=== PATIENT | female | born 1955 | race American Indian/Alaskan Native ===

== ENCOUNTER 2019-09-15 01:57 | Emergency (ER) | payer MEDICARE, OTHER ==
[2019-09-15] MEDS ORDERED: levETIRAcetam 1000 MG/NS 0.75% 1,000 MG/100 ML BAG IV ONE ×3 (02:01→04:35)
--- NOTE | 2019-09-15 02:07 | Emergency Department Report ---
ED Neuro Deficit HPI - General Stated Complaint: POSS SRTOKE Time Seen by Provider: 09/15/19 01:57 Source: EMS Mode of arrival: Stretcher Limitations: Altered Mental Status - History of Present Illness Initial Comments: Patient is a 64-year-old female that presents emergency room with complaints of weakness, new onset seizure. Patient had a witnessed seizure by EMS and was giv en Versed in route. Report received from EMS. Last known well time 6 PM on 09/14/2019 Report received from the family. Family states that at 6 PM the patient became weak on her left side and the weakness worsened throughout the day. Family states that 1 AM the patient then had some difficulty breathing and went into a seizure and they called EMS. -: Sudden Location: left face, left arm, left leg Presenting Symptoms: Present: Weak/Paralyzed One Side History of same: Yes Place: home Severity: severe Quality: weak Improves With: none Worsens With: none Context: sudden onset Associated Symptoms: confusion, seizures - Related Data Allergies/Adverse Reactions: Allergies Allergy/AdvReac Type Severity Reaction Status Date / Time No Known Allergies Allergy Unverified 09/15/19 06:27 ED Review of Systems ROS: Stated complaint: POSS SRTOKE Other details as noted in HPI Comment: Unobtainable due to pts medical conditions ED Past Medical Hx - Past Medical History Previous Medical History?: Yes Hx Hypertension: Yes Hx CVA: Yes - Surgical History Past Surgical History?: No - Family History Family history: no significant - Social History Smoking Status: Current Every Day Smoker Substance Use Type: None ED Neuro Physical Exam - General Limitations: Altered Mental Status, Physical Limitation General appearance: in no apparent distress, obtunded Suspected Stroke: Yes - Head Head exam: Present: atraumatic, normocephalic - Eye Eye exam: Present: normal appearance, PERRL Pupils: Present: normal accommodation - ENT ENT exam: Present: mucous membranes moist - Neck Neck exam: Present: normal inspection - Respiratory Respiratory exam: Present: normal lung sounds bilaterally. Absent: respiratory distress, wheezes, rales - Cardiovascular Cardiovascular Exam: Present: regular rate, normal rhythm. Absent: systolic murmur, diastolic murmur, rubs, gallop - GI/Abdominal GI/Abdominal exam: Present: soft, normal bowel sounds - Extremities Exam Extremities exam: Present: normal inspection - Back Exam Back exam: Present: normal inspection - Neurological Exam Neurological exam: Present: altered - NIHSS Assessment Interval: Baseline 1a. Level of Consciousness: coma/unresponsive 1b. LOC Questions: aphasic 1c. LOC Commands: performs no tasks correctly 2. Best Gaze: normal 3. Visual: no visual loss 4. Facial Palsy: minor paralysis 5b. Motor Arm Right: no movement 5a. Motor Arm Left: no movement 6a. Motor Leg Left: no movement 6b. Motor Leg Right: no movement 7. Limb Ataxia: absent 8. Sensory: no response/quadraplegic 9. Best Language: coma/unresponsive 10. Dysarthria: mute/anarrthric 11. Extinction/Inattention: no abnormality Total Score: 31 Stroke Severity: Severe Stroke - Psychiatric Psychiatric exam: Present: normal affect, normal mood - Skin Skin exam: Present: warm, dry, intact, normal color. Absent: rash ED Course Vital Signs 09/15/19 09/15/19 09/15/19 02:00 02:14 02:15 Temperature 97.8 F Pulse Rate 122 H 121 H Respiratory 33 H 29 H Rate Blood Pressure 149/54 O2 Sat by Pulse 97 97 Oximetry 09/15/19 09/15/19 09/15/19 02:30 02:44 03:15 Temperature Pulse Rate 120 H 120 H 117 H Respiratory 21 20 Rate Blood Pressure 138/60 138/60 146/70 O2 Sat by Pulse 100 100 100 Oximetry 09/15/19 09/15/19 09/15/19 03:30 03:36 03:45 Temperature Pulse Rate 133 H 125 H Respiratory 20 20 21 Rate Blood Pressure 137/59 137/59 O2 Sat by Pulse 100 100 100 Oximetry 09/15/19 09/15/19 09/15/19 04:00 04:15 04:18 Temperature Pulse Rate 105 H 100 H 97 H Respiratory 21 20 Rate Blood Pressure 88/44 87/45 87/45 O2 Sat by Pulse 99 100 100 Oximetry 09/15/19 09/15/19 09/15/19 04:30 04:45 05:00 Temperature Pulse Rate 95 H 92 H 91 H Respiratory 21 22 22 Rate Blood Pressure 95/48 97/49 102/52 O2 Sat by Pulse 100 100 100 Oximetry 09/15/19 09/15/19 09/15/19 05:15 05:31 05:45 Temperature Pulse Rate 110 H 117 H 116 H Respiratory 24 21 18 Rate Blood Pressure 102/52 112/61 114/64 O2 Sat by Pulse 100 100 100 Oximetry 09/15/19 09/15/19 06:01 06:15 Temperature Pulse Rate 117 H 114 H Respiratory 23 19 Rate Blood Pressure 104/55 104/55 O2 Sat by Pulse 100 100 Oximetry - Reevaluation(s) Reevaluation #1: Evaluation done. Patient sent to CT and code stroke initiated. 09/15/19 01:57 Reevaluation #2: Patient returned from CT. Patient is minimally responsive. Patient's GCS is low. Patient will be intubated to protect the airway. Neurologist on video monitor with patient's family. See procedure note for intubation. RSI used. Personal protective equipment used in accordance with hospital policy and CDC recommendations. 09/15/19 02:05 Reevaluation #3: Patient on vent. Patient will have a CTA done. Patient is not on Ativan drip. 09/15/19 03:00 Reevaluation #4: Patient in the room. Patient vital signs are being monitored and stable. No seizure activity noted. Patient on Ativan drip. 09/15/19 03:25 Reevaluation #5: CTAs are done. Patient has an occlusion. [place] [facility] will be paged. Patient also found to be hypotensive. Patient is a 500 mL bolus. Patient also ET tube most of adjusted down during transport to CT her back because the CT of the neck shows that the ET tube is in the right main bronchus. Respiratory therapist made aware and will adjust the tube. 09/15/19 04:06 Patient's blood pressures improved. Patient is currently on a pressor. Patient had a central line placed. Patient had to be placed on the Ativan drip because the patient started to fight the vent. Patient given bicarb. 09/15/19 05:47 Patient blood pressure is improving. Patient will be given more fluids. Patient will be prepared for transport. Patient will transport via EMS. 09/15/19 06:20 - Consultations Consultation #1: Neuro consulted. neuro saw pt and spoke with family. 09/15/19 01:57 Consultation #2: [facility] neuro[facility] paged 09/15/19 04:06 I discussed case with Dr. Worley, neurosurgery at [facility]. Dr. Worley does not recommend any further endovascular procedure but will discuss the case with the neuro ICU and the neurology service for transfer. Dr. Worley wants the patient to receive 2 more grams of Keppra and patient placed on a pressor for low blood pressure. 09/15/19 04:30 Consultation #3: I discussed case with hospitalist. Hospital states we do not have neurology here and recommends transfer. 09/15/19 04:45 Consult #4: Dr. Ferrara at [facility], neuro aviation boatswain's mate has accepted the patient after the patient has a central line and is placed on a pressor and a pH is 7.3. 09/15/19 04:56 I discussed the case again with Dr. Ferrara, the neuro aviation boatswain's mate. Dr. Ferrara has accepted the patient to be transferred to [facility] at this point. 09/15/19 06:19 - Central Line Placement Right Femoral Consent Obtained: emergent situation Time Out Performed: Yes Patient Placed on Monitor/Pulse Ox: Yes MD Prep: mask, gown, gloves Central Line Prep: Chlorhexidine scrub, sterile drapes applied Local Anesthesia Used: Lidocaine 1% Ultrasound Used for Placement: Yes Central Line Lumen Inserted: triple Bloods Obtained for Lab: Yes Central Line Position: good blood return, all ports aspirated, flus, sutured in place with 2-0 Dressing Applied: Tegaderm Patient Tolerated Procedure: well, no complications Complications: none - Intubation Time Out Performed: Yes Sedative: Etomidate Paralytic: Rocuronium Laryngoscope: fiberoptic video scope Size: 4 Assist Device Used: fiberoptic device ET Tube Size: 7.5 Tube Secured Depth (cm): 23 Tube Secured Location: teeth Tube Placement Confirmation: visualized tube passing t, equal breath sounds bilat, no breath sounds over epi, confirmation by capnometr Patient Tolerated Procedure: well, no complications Intubation Complications: none - Lab Data Result diagrams: 09/15/19 02:18 09/15/19 02:18 Lab Results 09/15/19 09/15/19 09/15/19 Range/Units 02:18 02:18 02:18 WBC 26.9 H (4.5-11.0) K/mm3 RBC 2.17 L (3.65-5.03) M/mm3 Hgb 5.4 L* (10.1-14.3) gm/dl Hct 20.5 L (30.3-42.9) % MCV 94 (79-97) fl MCH 25 L (28-32) pg MCHC 26 L (30-34) % RDW 20.6 H (13.2-15.2) % Plt Count 368 (140-440) K/mm3 Lymph # [employer] Developer Add Manual Diff Complete Total Counted 99 Seg Neuts % (Manual) 44.4 (40.0-70.0) % Band Neutrophils % 0 % Lymphocytes % (Manual) 43.4 H (13.4-35.0) % Reactive Lymphs % (Man) 0 % Monocytes % (Manual) 8.1 H (0.0-7.3) % Eosinophils % (Manual) 2.0 (0.0-4.3) % Basophils % (Manual) 0 (0.0-1.8) % Metamyelocytes % 2.0 % Myelocytes % 0 % Promyelocytes % 0 % Blast Cells % 0 % Nucleated RBC % Not Reportable Seg Neutrophils # Man 11.9 H (1.8-7.7) K/mm3 Band Neutrophils # 0.0 K/mm3 Lymphocytes # (Manual) 11.7 H (1.2-5.4) K/mm3 Abs React Lymphs (Man) 0.0 K/mm3 Monocytes # (Manual) 2.2 H (0.0-0.8) K/mm3 Eosinophils # (Manual) 0.5 H (0.0-0.4) K/mm3 Basophils # (Manual) 0.0 (0.0-0.1) K/mm3 Metamyelocytes # 0.5 K/mm3 Myelocytes # 0.0 K/mm3 Promyelocytes # 0.0 K/mm3 Blast Cells # 0.0 K/mm3 WBC Morphology Not Reportable Hypersegmented Neuts Not Reportable Hyposegmented Neuts Not Reportable Hypogranular Neuts Not Reportable Smudge Cells Not Reportable Toxic Granulation Not Reportable Toxic Vacuolation Not Reportable Dohle Bodies Not Reportable Pelger-Huet Anomaly Not Reportable Alex Rods Not Reportable Platelet Estimate Consistent w auto Clumped Platelets Not Reportable Plt Clumps, EDTA Not Reportable Large Platelets Not Reportable Giant Platelets Not Reportable Platelet Satelliting Not Reportable Plt Morphology Comment Not Reportable RBC Morphology Not Reportable Dimorphic RBCs Not Reportable Polychromasia Few Hypochromasia 3+ Poikilocytosis Not Reportable Anisocytosis 2+ Microcytosis Not Reportable Macrocytosis Few Spherocytes Rare Pappenheimer Bodies Not Reportable Sickle Cells Not Reportable Target Cells Not Reportable Tear Drop Cells Not Reportable Ovalocytes Not Reportable Helmet Cells Not Reportable C[place] Bodies Not Reportable [place] Rings Not Reportable Chacho Cells Few Bite Cells Not Reportable Crenated Cell Not Reportable Elliptocytes Not Reportable Acanthocytes (Spur) Not Reportable Rouleaux Not Reportable Hemoglobin C Crystals Not Reportable Schistocytes Not Reportable Malaria parasites Not Reportable Lex Bodies Not Reportable Hem Pathologist Commnt No PT 17.6 H (12.2-14.9) Sec. INR 1.42 H (0.87-1.13) APTT 29.4 (24.2-36.6) Sec. Thrombin Time 17.4 (15.1-19.6) Sec. ABG pH (7.350-7.450) pH Units ABG pCO2 mm Hg ABG pO2 (80.0-90.0) mm Hg ABG HCO3 (20.0-26.0) mmol/L ABG O2 Saturation (95.0-99.0) % ABG O2 Content (0.0-44) ABG Base Excess (-2.0-3.0) mmol/L ABG Hemoglobin (12.0-16.0) gm/dl ABG Carboxyhemoglobin (0.0-5.0) % ABG Methemoglobin (0.0-1.5) % Oxyhemoglobin (95.0-99.0) % FiO2 % Sodium (137-145) mmol/L Potassium (3.6-5.0) mmol/L Chloride (98-107) mmol/L Carbon Dioxide (22-30) mmol/L Anion Gap mmol/L BUN (7-17) mg/dL Creatinine (0.7-1.2) mg/dL Estimated GFR ml/min BUN/Creatinine Ratio % Glucose (65-100) mg/dL Calcium (8.4-10.2) mg/dL Total Bilirubin (0.1-1.2) mg/dL AST (5-40) units/L ALT (7-56) units/L Alkaline Phosphatase (35-129) units/L Total Creatine Kinase 135 (30-135) units/L CK-MB (CK-2) 2.2 (0.0-4.0) ng/mL CK-MB (CK-2) Rel Index 1.6 (0-4) Troponin T 0.014 (0.00-0.029) ng/mL Total Protein (6.3-8.2) g/dL Albumin (3.9-5) g/dL Albumin/Globulin Ratio % Blood Type Antibody Screen Crossmatch 09/15/19 09/15/19 09/15/19 Range/Units 02:18 03:04 04:00 WBC (4.5-11.0) K/mm3 RBC (3.65-5.03) M/mm3 Hgb (10.1-14.3) gm/dl Hct (30.3-42.9) % MCV (79-97) fl MCH (28-32) pg MCHC (30-34) % RDW (13.2-15.2) % Plt Count (140-440) K/mm3 Lymph # Add Manual Diff Total Counted Seg Neuts % (Manual) (40.0-70.0) % Band Neutrophils % % Lymphocytes % (Manual) (13.4-35.0) % Reactive Lymphs % (Man) % Monocytes % (Manual) (0.0-7.3) % Eosinophils % (Manual) (0.0-4.3) % Basophils % (Manual) (0.0-1.8) % Metamyelocytes % % Myelocytes % % Promyelocytes % % Blast Cells % % Nucleated RBC % Seg Neutrophils # Man (1.8-7.7) K/mm3 Band Neutrophils # K/mm3 Lymphocytes # (Manual) (1.2-5.4) K/mm3 Abs React Lymphs (Man) K/mm3 Monocytes # (Manual) (0.0-0.8) K/mm3 Eosinophils # (Manual) (0.0-0.4) K/mm3 Basophils # (Manual) (0.0-0.1) K/mm3 Metamyelocytes # K/mm3 Myelocytes # K/mm3 Promyelocytes # K/mm3 Blast Cells # K/mm3 WBC Morphology Hypersegmented Neuts Hyposegmented Neuts Hypogranular Neuts Smudge Cells Toxic Granulation Toxic Vacuolation Dohle Bodies Pelger-Huet Anomaly Alex Rods Platelet Estimate Clumped Platelets Plt Clumps, EDTA Large Platelets Giant Platelets Platelet Satelliting Plt Morphology Comment RBC Morphology Dimorphic RBCs Polychromasia Hypochromasia Poikilocytosis Anisocytosis Microcytosis Macrocytosis Spherocytes Pappenheimer Bodies Sickle Cells Target Cells Tear Drop Cells Ovalocytes Helmet Cells Cates-[place] Bodies Sturgis Rings Chacho Cells Bite Cells Crenated Cell Elliptocytes Acanthocytes (Spur) Rouleaux Hemoglobin C Crystals Schistocytes Malaria parasites Lex Bodies Hem Pathologist Commnt PT (12.2-14.9) Sec. INR (0.87-1.13) APTT (24.2-36.6) Sec. Thrombin Time (15.1-19.6) Sec. ABG pH 7.165 L* (7.350-7.450) pH Units ABG pCO2 38.8 mm Hg ABG pO2 126.0 H (80.0-90.0) mm Hg ABG HCO3 13.7 L (20.0-26.0) mmol/L ABG O2 Saturation 97.9 (95.0-99.0) % ABG O2 Content 8.5 (0.0-44) ABG Base Excess -13.7 L (-2.0-3.0) mmol/L ABG Hemoglobin 6.1 L (12.0-16.0) gm/dl ABG Carboxyhemoglobin 1.9 (0.0-5.0) % ABG Methemoglobin 0.6 (0.0-1.5) % Oxyhemoglobin 95.4 (95.0-99.0) % FiO2 80 % Sodium 137 (137-145) mmol/L Potassium 4.8 (3.6-5.0) mmol/L Chloride 100.0 (98-107) mmol/L Carbon Dioxide 3 L* (22-30) mmol/L Anion Gap 39 mmol/L BUN 29 H (7-17) mg/dL Creatinine 2.3 H (0.7-1.2) mg/dL Estimated GFR 26 ml/min BUN/Creatinine Ratio 13 % Glucose 377 H (65-100) mg/dL Calcium 9.2 (8.4-10.2) mg/dL Total Bilirubin < 0.20 (0.1-1.2) mg/dL AST 33 (5-40) units/L ALT 23 (7-56) units/L Alkaline Phosphatase 87 (35-129) units/L Total Creatine Kinase (30-135) units/L CK-MB (CK-2) (0.0-4.0) ng/mL CK-MB (CK-2) Rel Index (0-4) Troponin T (0.00-0.029) ng/mL Total Protein 6.6 (6.3-8.2) g/dL Albumin 3.7 L (3.9-5) g/dL Albumin/Globulin Ratio 1.3 % Blood Type O POSITIVE Antibody Screen Negative Crossmatch See Detail 09/15/19 Range/Units 06:05 WBC (4.5-11.0) K/mm3 RBC (3.65-5.03) M/mm3 Hgb (10.1-14.3) gm/dl Hct (30.3-42.9) % MCV (79-97) fl MCH (28-32) pg MCHC (30-34) % RDW (13.2-15.2) % Plt Count (140-440) K/mm3 Lymph # Add Manual Diff Total Counted Seg Neuts % (Manual) (40.0-70.0) % Band Neutrophils % % Lymphocytes % (Manual) (13.4-35.0) % Reactive Lymphs % (Man) % Monocytes % (Manual) (0.0-7.3) % Eosinophils % (Manual) (0.0-4.3) % Basophils % (Manual) (0.0-1.8) % Metamyelocytes % % Myelocytes % % Promyelocytes % % Blast Cells % % Nucleated RBC % Seg Neutrophils # Man (1.8-7.7) K/mm3 Band Neutrophils # K/mm3 Lymphocytes # (Manual) (1.2-5.4) K/mm3 Abs React Lymphs (Man) K/mm3 Monocytes # (Manual) (0.0-0.8) K/mm3 Eosinophils # (Manual) (0.0-0.4) K/mm3 Basophils # (Manual) (0.0-0.1) K/mm3 Metamyelocytes # K/mm3 Myelocytes # K/mm3 Promyelocytes # K/mm3 Blast Cells # K/mm3 WBC Morphology Hypersegmented Neuts Hyposegmented Neuts Hypogranular Neuts Smudge Cells Toxic Granulation Toxic Vacuolation Dohle Bodies Pelger-Huet Anomaly Alex Rods Platelet Estimate Clumped Platelets Plt Clumps, EDTA Large Platelets Giant Platelets Platelet Satelliting Plt Morphology Comment RBC Morphology Dimorphic RBCs Polychromasia Hypochromasia Poikilocytosis Anisocytosis Microcytosis Macrocytosis Spherocytes Pappenheimer Bodies Sickle Cells Target Cells Tear Drop Cells Ovalocytes Helmet Cells Cates-[place] Bodies Sturgis Rings Chacho Cells Bite Cells Crenated Cell Elliptocytes Acanthocytes (Spur) Rouleaux Hemoglobin C Crystals Schistocytes Malaria parasites Lex Bodies Hem Pathologist Commnt PT (12.2-14.9) Sec. INR (0.87-1.13) APTT (24.2-36.6) Sec. Thrombin Time (15.1-19.6) Sec. ABG pH 7.424 (7.350-7.450) pH Units ABG pCO2 36.4 mm Hg ABG pO2 174.3 H (80.0-90.0) mm Hg ABG HCO3 23.3 (20.0-26.0) mmol/L ABG O2 Saturation 99.1 H (95.0-99.0) % ABG O2 Content 7.5 (0.0-44) ABG Base Excess -1.0 (-2.0-3.0) mmol/L ABG Hemoglobin 5.1 L (12.0-16.0) gm/dl ABG Carboxyhemoglobin 1.6 (0.0-5.0) % ABG Methemoglobin 0.5 (0.0-1.5) % Oxyhemoglobin 97.0 (95.0-99.0) % FiO2 45 % Sodium (137-145) mmol/L Potassium (3.6-5.0) mmol/L Chloride (98-107) mmol/L Carbon Dioxide (22-30) mmol/L Anion Gap mmol/L BUN (7-17) mg/dL Creatinine (0.7-1.2) mg/dL Estimated GFR ml/min BUN/Creatinine Ratio % Glucose (65-100) mg/dL Calcium (8.4-10.2) mg/dL Total Bilirubin (0.1-1.2) mg/dL AST (5-40) units/L ALT (7-56) units/L Alkaline Phosphatase (35-129) units/L Total Creatine Kinase (30-135) units/L CK-MB (CK-2) (0.0-4.0) ng/mL CK-MB (CK-2) Rel Index (0-4) Troponin T (0.00-0.029) ng/mL Total Protein (6.3-8.2) g/dL Albumin (3.9-5) g/dL Albumin/Globulin Ratio % Blood Type Antibody Screen Crossmatch - EKG Data -: EKG Interpreted by Me EKG shows normal: sinus rhythm, axis, intervals, QRS complexes, ST-T waves Rate: tachycardia - Radiology Data Radiology results: report reviewed interpreted by me: CHEST 1 VIEW INDICATION / CLINICAL INFORMATION: weakness. COMPARISON: None available. FINDINGS: SUPPORT DEVICES: ET tube is present with the tip approximately 2.3 cm above the lalo. NG tube is also present. The tip is not visualized but is at least within the midportion of the stomach. HEART / MEDIASTINUM: No significant abnormality. LUNGS / PLEURA: Borderline interstitial pulmonary edema. There is questionable retrocardiac parenchymal disease in the left lung base. This is nonspecific and could repr esent pneumonia or atelectasis. Probable very small left pleural effusion. The lungs are otherwise clear. No pneumothorax. ADDITIONAL FINDINGS: No significant additional findings. IMPRESSION: 1. Left lower lobe retrocardiac parenchymal disease. It is unclear on this single image whether this is atelectasis or pneumonia. 2. Borderline interstitial pulmonary edema. CT head/brain wo con INDICATION / CLINICAL INFORMATION: MAIN: Poss bleed CODE STROKE [phone]. TECHNIQUE: Axial CT imaging of brain was obtained without contrast. Coronal and sagittal reformatted imaging obtained and reviewed. All CT scans at this location are performed using CT dose reduction for ALARA by means of automated exposure control. COMPARISON: None available. FINDINGS: No intracranial hemorrhage, mass, or midline shift is noted. There are areas of encephalomalacia throughout the right frontal lobe consistent with old ischemia. Small lacune is present in the caudate head on the right. No extra-axial fluid collection or suggestion of acute CVA at this time. Ventricular system and basilar cisterns are grossly unremarkable. Mild cerebral and cerebellar atrophy noted. Mild microvascular angiopathic change noted. Visualized paranasal sinuses and mastoid air cells are well aerated and clear. No calvarial abnormality. IMPRESSION: 1. Chronic findings within the right frontal lobe. No definite acute intracranial abnormality. CHEST 1 VIEW INDICATION / CLINICAL INFORMATION: weakness. COMPARISON: None available. FINDINGS: SUPPORT DEVICES: ET tube is present with the tip approximately 2.3 cm above the lalo. NG tube is also present. The tip is not visualized but is at least within the midportion of the stomach. HEART / MEDIASTINUM: No significant abnormality. LUNGS / PLEURA: Borderline interstitial pulmonary edema. There is questionable retrocardiac parenchymal disease in the left lung base. This is nonspecific and could represent pneumonia or atelectasis. Probable very small left pleural effusion. The lungs are otherwise clear. No pneumothorax. ADDITIONAL FINDINGS: No significant additional findings. IMPRESSION: 1. Left lower lobe retrocardiac parenchymal disease. It is unclear on this single image whether this is atelectasis or pneumonia. 2. Borderline interstitial pulmonary edema. CT angio neck INDICATION / CLINICAL INFORMATION: 64 years Female; weakness. TECHNIQUE: Thin cut axial images obtained through the head during IV bolus contrast administration. Sagittal, coronal, and 3 plane MIP reconstructions performed by the technologist. NASCET type criteria used evaluate stenoses. All CT scans at this location are performed using CT dose reduction for ALARA by means of automated exposure control. COMPARISON: None available. FINDINGS: ARCH: Bovine arch configuration noted. CAROTID ARTERIES: The common carotid arteries are patent bilaterally. The left internal carotid artery is widely patent. There is occlusion of the right internal carotid artery at its origin. Only minimal flow is seen distally in the communicating portion of the right internal carotid artery, presumably retrograde. VERTEBRAL ARTERIES: Codominant vertebral system seen. No significant stenosis appreciated. ADDITIONAL FINDINGS: Patient is intubated. NG tube noted. Secretions are layering dependently in the nasopharynx. Mild degenerative changes seen in the cervical spine with most marked findings at C4-5 and C5-6. Punctate calcifications seen in the right parotid gland-would question chronic sialoadenitis. Minimal findings to lesser degree seen on the left. Endotracheal tube extends in the patient's right main bronchus and most likely could be pulled back 3 to 4 cm. IMPRESSION: 1. Right ICA occlusion noted. 2. 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 3. Endotracheal tube extends into the patient's right main bronchus. CT angio head INDICATION / CLINICAL INFORMATION: 64 years Female; MAIN: weakness CODE STROKE CTA HEAD AND NECK, 100CC [id number]. TECHNIQUE: Thin cut axial images obtained through the head during IV bolus contrast administration. Sagittal, coronal, and 3 plane MIP reconstructions performed by the gordy chnologist. NASCET type criteria used evaluate stenoses. Automated exposure control utilized for r adiation reduction purposes. COMPARISON: None available. FINDINGS: INTERNAL CAROTID ARTERIES: Right internal carotid artery appears to be occluded with only scant flow seen in the communicating portion-most likely retrograde. The left internal carotid artery is widely patent. VERTEBROBASILAR SYSTEM: No significant narrowing appreciated. DISTAL BRANCHES: Distal branches of the anterior and posterior cerebral arteries are fairly symmetric in appearance and number. Because of the reduced/absence of flow in the right internal carotid artery, the distal MCA branches on the left have a more robust appearance than the right. The A1 segment on the right is re latively hypoplastic when compared with the left. The right MCA territory is most likely fed via the left ICA across the [place]. ANEURYSM: None identified. ADDITIONAL FINDINGS: Secretions are layering in the nasopharynx. The patient is intubated. IMPRESSION: 1. Absence of flow seen in the right internal carotid artery, as described above. 2. Reduced flow in the right MCA territory suspected, as described above. In patients with multiple chronic infarcts, diffusion imaging by MRI would most likely yield the best information in terms of acute ischemia. - Medical Decision Making Patient is a 64-year-old female that presents emergency room with altered mental status, left-sided weakness, status epilepticus. Patient had a code stroke initiated immediately upon arrival and neurology consulted. Patient's had a head CT which was negative. Patient then had a CTA of the head ordered. Prior to CTA the patient was intubated due to decreased level of consciousness and airway protection. Patient's labs were significant for severe anemia, respiratory acidosis, low bicarb, renal failure. Patient had a type and screen done and was given blood in the ER. Patient placed on a pressor per the neurosurgery at [facility]'s recommendation. Patient was also given an extra 2 g of Keppra per the neurosurgery recommendation. The neurosurgery at [place] stated there is no endovascular intervention for the patient at this time. I then discussed the case with the neuro aviation boatswain's mate at [place] and he has accepted the patient. Neuro aviation boatswain's mate at [place], Dr. Ferrara recommended a central line be placed and patient have adequate fluid resuscitation along with starting blood. Patient had a central line placed in the right femoral vein. Prior to the central line in place and the patient began to wake up and the patient was placed on an Ativan drip. Patient's x-ray done. Patient found to have a pneumonia patient was given antibiotics in the ER. Patient had a CTA of the head and neck done in the ER. The report was given to the neuro aviation boatswain's mate and the neurosurgeon at [place]. While the patient was transferring to or from [place] the ET tube had moved and it was repositioned. Patient had bilateral breath sounds. Patient was given 3 Amps of bicarb for her severe acidosis and low bicarb. Patient's pH improved. I then discussed the case again with Dr. Ferrara and a Dr. Ferrara excepted the patient to be transferred to [place]. Patient moved to the neuro ICU at [place]. Family updated with plan of care. Patient's family agree with entire plan of care. - Differential Diagnosis Stroke, status epilepticus, respiratory failure, pneumonia, ICH - Core Measures AMI Core Measures Followed: Yes Critical Care Time: Yes Critical care time in (mins) excluding proc time.: 80 Critical care attestation.: If time is entered above; I have spent that time in minutes in the direct care of this critically ill patient, excluding procedure time. Critical Care Time: 80 minutes ED Disposition Clinical Impression: New onset seizure, Left-sided weakness, Status epilepticus, Metabolic acidosis Respiratory failure Qualifiers: Chronicity: acute Respiratory failure complication: unspecified whether with hypoxia or hypercapnia Qualified Code(s): J96.00 - Acute respiratory failure, unspecified whether with hypoxia or hypercapnia Altered mental state Qualifiers: Altered mental status type: unspecified Qualified Code(s): R41.82 - Altered mental status, unspecified Anemia Qualifiers: Anemia type: unspecified type Qualified Code(s): D64.9 - Anemia, unspecified Renal failure Qualifiers: Renal failure chronicity: acute Acute renal failure type: unspecified Qualified Code(s): N17.9 - Acute kidney failure, unspecified CVA (cerebral vascular accident) Qualifiers: CVA mechanism: unspecified Qualified Code(s): I63.9 - Cerebral infarction, unspecified Pneumonia Qualifiers: Pneumonia type: due to unspecified organism Laterality: unspecified laterality Lung location: unspecified part of lung Qualified Code(s): J18.9 - Pneumonia, unspecified organism Hypotension Qualifiers: Hypotension type: unspecified hypotension type Qualified Code(s): I95.9 - Hypotension, unspecified Disposition: DC/TX-70 ANOTHER TYPE HLTHCARE Is pt being admited?: No Does the pt Need Aspirin: No Condition: Critical Time of Disposition: 06:19
[2019-09-15] MEDS ORDERED: LORazepam 2 MG/ML VIAL IV PRN (02:23)
[2019-09-15] MEDS ORDERED: LIP THERAPY VASELINE TP PRN (02:23)
[2019-09-15] MEDS ORDERED: MINERAL OIL/PETROLATUM, WHITE OPHTH OINT 3.5 GM OU PRN (02:23)
[2019-09-15] MEDS ORDERED: ROCURONIUM 50 MG/5 ML INJ IV ONE ×2 (02:24→14:13)
[2019-09-15] MEDS ORDERED: ETOMIDATE 20 MG/10 ML INJ IV ONE ×2 (02:24→14:13)
[2019-09-15 02:26] LABS: Mean Corpuscular HGB Conc 26 % (30-34); Mean Corpuscular Volume 94 fl (79-97); Platelet Count 368 K/mm3 (140-440); Red Blood Count 2.17 M/mm3 (3.65-5.03)
--- NOTE | 2019-09-15 02:40 | Cat Scan Report ---
CT head/brain wo con INDICATION / CLINICAL INFORMATION: MAIN: Poss bleed CODE STROKE [phone]. TECHNIQUE: Axial CT imaging of brain was obtained without contrast. Coronal and sagittal reformatted imaging obt ained and reviewed. All CT scans at this location are performed using CT dose reduction for ALARA by means of automated exposure control. COMPARISON: None available. FINDINGS: No intracranial hemorrhage, mass, or midline shift is noted. There are areas of encephalomalacia thro ughout the right frontal lobe consistent with old ischemia. Small lacune is present in the caudate he ad on the right. No extra-axial fluid collection or suggestion of acute CVA at this time. Ventricular system and basilar cisterns are grossly unremarkable. Mild cerebral and cerebellar atrophy noted. Mi ld microvascular angiopathic change noted. Visualized paranasal sinuses and mastoid air cells are well aerated and clear. No calvarial abnormality. IMPRESSION: 1. Chronic findings within the right frontal lobe. No definite acute intracranial abnormality. 2. This is a code stroke. Report was called to Dr. Card in the ED at 0132 hours [employer] Signer Name: Shannan Elmore MD Signed: 09/15/2019 2:36 AM Workstation Name: [id number]
[2019-09-15 02:44] LABS: Creatine Kinase MB 2.2 ng/mL (0.0-4.0)
[2019-09-15 02:45] LABS: Alanine Aminotransferase 23 units/L (7-56); Albumin 3.7 g/dL (3.9-5); BUN/Creatinine Ratio 13; Blood Urea Nitrogen 29 mg/dL (7-17); Calcium 9.2 mg/dL (8.4-10.2); Hemolysis Index 7
[2019-09-15 02:47] LABS: INR 1.42 (0.87-1.13)
[2019-09-15 02:48] LABS: Partial Thromboplastin Time 29.4 Sec. (24.2-36.6); Thrombin Time 17.4 Sec. (15.1-19.6)
--- NOTE | 2019-09-15 02:59 | XRay Report ---
CHEST 1 VIEW INDICATION / CLINICAL INFORMATION: weakness. COMPARISON: None available. FINDINGS: SUPPORT DEVICES: ET tube is present with the tip approximately 2.3 cm above the lalo. NG tube is al so present. The tip is not visualized but is at least within the midportion of the stomach. HEART / MEDIASTINUM: No significant abnormality. LUNGS / PLEURA: Borderline interstitial pulmonary edema. There is questionable retrocardiac parenchym al disease in the left lung base. This is nonspecific and could represent pneumonia or atelectasis. P robable very small left pleural effusion. The lungs are otherwise clear. No pneumothorax. ADDITIONAL FINDINGS: No significant additional findings. IMPRESSION: 1. Left lower lobe retrocardiac parenchymal disease. It is unclear on this single image whether this is atelectasis or pneumonia. 2. Borderline interstitial pulmonary edema. Signer Name: Shannan Elmore MD Signed: 09/15/2019 2:55 AM Workstation Name: [id number]
[2019-09-15] MEDS ORDERED: LORazepam 100 MG in SODIUM CHLORIDE 0.9% 50 ML, EMPTY BAG 0 ML IV SCH (03:00)
[2019-09-15 03:04] LABS: Hematocrit 20.5 % (30.3-42.9); Hemoglobin 5.4 gm/dl (10.1-14.3); Red Cell Distribution Width 20.6 % (13.2-15.2)
[2019-09-15] MEDS ORDERED: CEFEPIME/NS 2 GM/100 ML 2 GM/100 ML BAG IV ONE (03:23)
[2019-09-15] MEDS ORDERED: SODIUM CHLORIDE 0.9% 500 ML 500 ML IV ONE (03:33)
--- NOTE | 2019-09-15 03:37 | Cat Scan Report ---
CT angio head INDICATION / CLINICAL INFORMATION: 64 years Female; MAIN: weakness CODE STROKE CTA HEAD AND NECK, 100CC [id number]. TECHNIQUE: Thin cut axial images obtained through the head during IV bolus contrast administration. S agittal, coronal, and 3 plane MIP reconstructions performed by the technologist. NASCET type criteria used evaluate stenoses. Automated exposure control utilized for radiation reduction purposes. COMPARISON: None available. FINDINGS: INTERNAL CAROTID ARTERIES: Right internal carotid artery appears to be occluded with only scant flow seen in the communicating portion-most likely retrograde. The left internal carotid artery is widely patent. VERTEBROBASILAR SYSTEM: No significant narrowing appreciated. DISTAL BRANCHES: Distal branches of the anterior and posterior cerebral arteries are fairly symmetric in appearance and number. Because of the reduced/absence of flow in the right internal carotid artery, the distal MCA branches on the left have a more robust appearance than the right. The A1 segment on the right is relatively h ypoplastic when compared with the left. The right MCA territory is most likely fed via the left ICA a [place]. ANEURYSM: None identified. ADDITIONAL FINDINGS: Secretions are layering in the nasopharynx. The patient is intubated. IMPRESSION: 1. Absence of flow seen in the right internal carotid artery, as described above. 2. Reduced flow in the right MCA territory suspected, as described above. In patients with multiple c hronic infarcts, diffusion imaging by MRI would most likely yield the best information in terms of ac maria ischemia. Signer Name: Vincent Ojeda MD, III Signed: 09/15/2019 3:33 AM Workstation Name: [email or web address] [id number]
--- NOTE | 2019-09-15 03:50 | Cat Scan Report ---
CT angio neck INDICATION / CLINICAL INFORMATION: 64 years Female; weakness. TECHNIQUE: Thin cut axial images obtained through the head during IV bolus contrast administration. S agittal, coronal, and 3 plane MIP reconstructions performed by the technologist. NASCET type criteria used evaluate stenoses. All CT scans at this location are performed using CT dose reduction for ALAR A by means of automated exposure control. COMPARISON: None available. FINDINGS: ARCH: Bovine arch configuration noted. CAROTID ARTERIES: The common carotid arteries are patent bilaterally. The left internal carotid artery is widely patent. There is occlusion of the right internal carotid artery at its origin. Only minimal flow is seen dist ally in the communicating portion of the right internal carotid artery, presumably retrograde. VERTEBRAL ARTERIES: Codominant vertebral system seen. No significant stenosis appreciated. ADDITIONAL FINDINGS: Patient is intubated. NG tube noted. Secretions are layering dependently in the nasopharynx. Mild degenerative changes seen in the cervical spine with most marked findings at C4-5 and C5-6. Punctate calcifications seen in the right parotid gland-would question chronic sialoadenitis. Minimal findings to lesser degree seen on the left. Endotracheal tube extends in the patient's right main bronchus and most likely could be pulled back 3 to 4 cm. IMPRESSION: 1. Right ICA occlusion noted. 2. 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 3. Endotracheal tube extends into the patient's right main bronchus. Signer Name: Vincent Ojeda MD, III Signed: 09/15/2019 3:45 AM Workstation Name: [id number]
[2019-09-15] MEDS ORDERED: SODIUM CHLORIDE 0.9% 1000 ML 1,000 ML IV ONE ×2 (04:07→06:11)
[2019-09-15 04:09] LABS: ABG Base Excess -13.7 mmol/L (-2.0-3.0); ABG HCO3 13.7 mmol/L (20.0-26.0); ABG Methemoglobin 0.6 % (0.0-1.5); ABG Oxygen Saturation 97.9 % (95.0-99.0); ABG PCO2 38.8 mm Hg
[2019-09-15 04:16] LABS: ABG PH 7.165 pH Units (7.350-7.450)
--- NOTE | 2019-09-15 04:19 | Emergency Department Report ---
ED General Adult HPI - General Chief complaint: Seizure Stated complaint: POSS SRTOKE Time Seen by Provider: 09/15/19 01:57 Source: EMS Mode of arrival: Stretcher Limitations: Altered Mental Status, Physical Limitation - Related Data Allergies Allergy/AdvReac Type Severity Reaction Status Date / Time Unable to Assess Allergy Unverified 09/15/19 02:02 ED Review of Systems ROS: Stated complaint: POSS SRTOKE Other details as noted in HPI ED Past Medical Hx - Past Medical History Previous Medical History?: Yes Hx Hypertension: Yes Hx CVA: Yes - Surgical History Past Surgical History?: No - Social History Smoking Status: Never Smoker Substance Use Type: None ED Physical Exam - General Limitations: Altered Mental Status, Physical Limitation General appearance: in no apparent distress, obtunded - Other Other exam information: [facility] Date of Service: 09/15/2019 01:59:10 Impression: Rule Out Acute Ischemic Stroke Comments/Sign-Out: The patient has a right ICA occlusive disease that is noted, and diminished flow in right ICA. Last normal at 6:00 pm. She was intubated. Mechanism of Stroke: Possible Thromboembolic Metrics: Last Known Well: 09/14/2019 18:00:00 [employer] Notification Time: 09/15/2019 01:58:37 Arrival Time: 09/15/2019 01:59:10 Stamp Time: 09/15/2019 01:59:10 Time First Login Attempt: 09/15/2019 02:05:00 Video Start Time: 09/15/2019 02:05:00 Symptoms: lost feeling in both legs and started to fall at 6:00 pm NIHSS Start Assessment Time: 09/15/2019 02:09:53 Patient is not a candidate for tPA. Patient was not deemed candidate for tPA thrombolytics because of Last Well Known Above 4.[address] head showed no acute hemorrhage or acute core infarct. Clinical Presentation is Suggestive of Large Vessel Occlusive Disease, Recommendations are as Follows Advanced Imaging is Suggestive of Large Vessel Occlusion, Neurointerventional Specialist to be Consulted. Radiologist was called back for review of advanced imaging on 09/15/2019 04:12 :50 Discussed with Neurointerventionalist on 09/15/2019 04:12:54 ED Physician notified of diagnostic impression and management plan on 09/15/2019 02:10:19 Our recommendations are outlined below. Recommendations: Activate Stroke Protocol Admission/Order Set Stroke/Telemetry Floor Neuro Checks Bedside Swallow Eval DVT Prophylaxis IV Fluids, Normal Saline Head of Bed Below 30 Degrees Euglycemia and Avoid Hyperthermia (PRN Acetaminophen) Routine Consultation with Inhouse Neurology for Follow up Care Sign Out: Discussed with Emergency Department Provider History of Present Illness: Patient is a 64 year old Female. Patient was brought by EMS for symptoms of lost feeling in both legs and started to fall at 6:00 pm @6 pm she lost feeling in both of her legs and she started to fall. Today she was in the sofa, and blood was coming out of her mouth. she was having a seizure a that time(She bit her toungue) CT head showed no acute hemorrhage or acute core infarct. Last seen normal was beyond 4.5 hours of presentation. Examination: 1A: Level of Consciousness - Postures or Unresponsive + 3 1B: Ask Month and Age - Aphasic + 2 1C: Blink Eyes & Squeeze Hands - Performs Both Tasks + 0 2: Test Horizontal Extraocular Movements - Normal + 0 3: Test Visual Lacy - No Visual Loss + 0 4: Test Facial Palsy (Use Grimace if Obtunded) - Normal symmetry + 0 5A: Test Left Arm Motor Drift - No Movement + 4 5B: Test Right Arm Motor Drift - No Drift for 10 Seconds + 0 6A: Test Left Leg Motor Drift - No Movement + 4 6B: Test Right Leg Motor Drift - No Drift for 5 Seconds + 0 7: Test Limb Ataxia (FNF/Heel-Mcfarland) - No Ataxia + 0 8: Test Sensation - Normal; No sensory loss + 0 9: Test Language/Aphasia - Normal; No aphasia + 0 10: Test Dysarthria - Normal + 0 11: Test Extinction/Inattention - No abnormality + 0 NIHSS Score: 13 Patient was informed the Neurology Consult would happen via TeleHealth consult by way of interactive audio and video telecommunications and consented to receiving care in this manner. Due to the immediate potential for life-threatening deterioration due to underlying acute neurologic illness, I spent 35 minutes providing critical care. This time includes time for face to face visit via telemedicine, review of medical records, imaging studies and discussion of findings with providers, the patient and/or family. Dr Marko Edgar [employer] Case [id number] ED Course Vital Signs 09/15/19 09/15/19 09/15/19 02:00 02:14 02:15 Temperature 97.8 F Pulse Rate 122 H 121 H Respiratory 33 H 29 H Rate Blood Pressure 149/54 O2 Sat by Pulse 97 97 Oximetry 09/15/19 09/15/19 09/15/19 02:30 02:44 03:15 Temperature Pulse Rate 120 H 120 H 117 H Respiratory 21 20 Rate Blood Pressure 138/60 138/60 146/70 O2 Sat by Pulse 100 100 100 Oximetry 09/15/19 09/15/19 03:30 03:36 Temperature Pulse Rate 133 H Respiratory 20 20 Rate Blood Pressure 137/59 O2 Sat by Pulse 100 100 Oximetry ED Medical Decision Making - Lab Data Result diagrams: 09/15/19 02:18 09/15/19 02:18 Critical care attestation.: If time is entered above; I have spent that time in minutes in the direct care of this critically ill patient, excluding procedure time. ED Disposition Disposition: OP ADMIT IP TO THIS HOSP Condition: Critical Referrals: ARTUR GANNON MD [Primary Care Provider] - 3-5 Days
[2019-09-15] MEDS ORDERED: NORepinephrine/NS 4 MG-250 ML 4 MG/250 ML BAG IV ONE (04:45)
[2019-09-15] MEDS ORDERED: SODIUM BICARB 8.4% 50 MEQ/50 ML SYRINGE IV ONE ×2 (04:58→05:51)
[2019-09-15] MEDS ORDERED: NORepinephrine/NS 4 MG-250 ML 4 MG/250 ML BAG IV SCH (05:00)
[2019-09-15 06:14] LABS: Basophils % (Manual) 0 % (0.0-1.8); Monocytes % (Manual) 8.1 % (0.0-7.3); Total Cells Counted 99
[2019-09-15 06:15] LABS: Anisocytosis 2+; Burr Cells Few; Hypochromasia 3+; Macrocytosis Few
[2019-09-15 06:16] LABS: Platelet Estimate Consistent w Auto; Spherocytes Rare
[2019-09-15 06:19] LABS: ABG HCO3 23.3 mmol/L (20.0-26.0); ABG Methemoglobin 0.5 % (0.0-1.5); ABG Oxygen Saturation 99.1 % (95.0-99.0); ABG PCO2 36.4 mm Hg; ABG PH 7.424 pH Units (7.350-7.450); ABG PO2 174.3 mm Hg (80.0-90.0)
[2019-09-15 06:21] VITALS: BP 104/55
== END 2019-09-15 07:26 | disposition other institution (70) ==
LOC: ED 01:57
DX: J96.90 Respiratory failure, unspecified, unspecified whether with hypoxia or hypercapnia (principal); E87.2 Acidosis; G40.901 Epilepsy, unspecified, not intractable, with status epilepticus; N19 Unspecified kidney failure; R41.82 Altered mental status, unspecified; I63.9 Cerebral infarction, unspecified; I95.89 Other hypotension; Z79.899 Other long term (current) drug therapy
CPT/HCPCS: 31500; 36415; 36430; 36556; 70450; 70496; 70498; 71045; 80053; 82550; 82553; 82803; 84484; 85007; 85025; 85610; 85670; 85730; 86850; 86900; 86901; 86920; 87205; 93005; 93010; 94002; 96365; 96366; 96367; 96368; 96375; 96376; 99291; 99292; J0692; J1953; J2060; J7030; J7040; P9016; Q9967